=== PATIENT | male | born 1990 | race Caucasian/White ===

== ENCOUNTER 2016-11-04 20:42 | Emergency (ER) | payer BC, OTHER ==
[~2016-11-04] VITALS: Ht 175.3 cm; Wt 61.2 kg
[~2016-11-04 20:42] MED LIST: ONDA4TAB11 PO; ONDAN4ODT PO; PNT40TEC PO
[2016-11-04] MEDS ORDERED: ONDANSETRON 4 MG (ZOFRAN) ORAL DISSOLVE TAB PO ONE (21:00)
[2016-11-04] MEDS ORDERED: RX-ONDANSETRON 4 MG ODT (ZOFRAN) PPK #4 PO STA (21:49)
[2016-11-04] MEDS ORDERED: ONDA4TAB8 PO (21:52)
[2016-11-04] MEDS ORDERED: PANT40TA2 PO (21:52)
--- NOTE | 2016-11-04 21:52 | ED GI ---
General Chief Complaint: Abdominal/GI Problems Stated Complaint: VOMITING COLD SWEATS NAUSEA Nursing Triage Note: SINUS PRESSURE, NAUSEA/VOMITTING X4HRS Sepsis Screen: No Definite Risk Source of Information: Patient History of Present Illness Time Seen By Provider: 21:07 Initial Comments PT STATES HE BEGAN TO HAVE A SINUS HEADACHE AROUND 1430 TODAY, AFTER GETTING OFF WORK--FELT FINE AT WORK DID NOT TAKE ANYTHING FOR HEADACHE AND HEADACHE WENT AWAY AROUND 1600, HE BEGAN TO HAVE NAUSEA AND VOMITING--STATES HE VOMITED 6-7 TIMES NO DIARRHEA. STATES HIS LAST BM WAS 2 DAYS AGO, WHICH IS NORMAL FOR PT VOIDED AT 1700 AFTER HE THREW UP A FEW TIMES, HE BEGAN TO HAVE EPIGASTRIC BURNING--STATES "MY ESOPHAGUS MURGUIA" NO FEVER NO KNOWN SICK CONTACTS OR SUSPICIOUS FOODS HAS HAD SIMILAR ON OCCASION ATE BREAKFAST, AND FOR LUNCH HAD 2 HOT DOGS AND CHIPS, AND AT 1430, HE HAD [employer]OESE FRIES. PCP: NICO Allergies and Home Medications Allergies Coded Allergies: No Known Drug Allergies (Unverified , 07/30/12) Home Medications Ondansetron 4 Mg Tab.rapdis, 4 MG PO Q4H, #10 Prescribed by: YESSI PFEIFFER on 11/04/162151 Pantoprazole Sodium 40 Mg Tablet.dr, 40 MG PO DAILY, #15 Prescribed by: YESSI PFEIFFER on 11/04/162151 Review of Systems Constitutional: no symptoms reported Respiratory: No Symptoms Reported Cardiovascular: No Symptoms Reported Gastrointestinal: See HPI Genitourinary: No Symptoms Reported Musculoskeletal: no symptoms reported Skin: no symptoms reported Psychiatric/Neurological: No Symptoms Reported Endocrine: No Symptoms Reported Past Faxpuaa-Ilrnxi-Hqizrq Hx Patient Social History Alcohol Use: Denies Use Recreational Drug Use: No Smoking Status: Current Someday Smoker Type Used: Cigarettes 2nd Hand Smoke Exposure: Yes Recent Foreign Travel: No Contact w/Someone Who Travel: No Recent Infectious Disease Expo: No Recent Hopitalizations: No Immunizations Up To Date Date of Influenza Vaccine: Jun 22, 2013 Seasonal Allergies Seasonal Allergies: No Surgeries HX Surgeries: Yes Surgeries: Vasectomy Respiratory Hx Respiratory Disorders: No Cardiovascular Hx Cardiac Disorders: No Neurological Hx Neurological Disorders: No Reproductive System Hx Reproductive Disorders: No Genitourinary Hx Genitourinary Disorders: No Gastrointestinal Hx Gastrointestinal Disorders: No Musculoskeletal Hx Musculoskeletal Disorders: No Endocrine Hx Endocrine Disorders: No HEENT HX ENT Disorders: No Cancer Hx Cancer: No Psychosocial Hx Psychiatric Problems: No Integumentary HX Skin/Integumentary Disorder: No Blood Transfusions Hx Blood Disorders: No Physical Exam Vital Signs VS - Last 72 Hours, by Label 11/04/16 11/04/16 20:55 21:55 Temp 97.6 97.6 Pulse 64 59 Resp 18 18 B/P (MAP) 106/75 Pulse Ox 98 98 O2 Delivery Room Air Capillary Refill : Less Than 3 Seconds General Appearance: no apparent distress, other (WALKS UPRIGHT AND MOVES QUICKLY WITHOUT DIFFICULTY), thin (VERY) HEENT: PERRL/EOMI, other (ORAL MUCOSA MOIST) Neck: normal inspection Respiratory: normal breath sounds, no respiratory distress, no accessory muscle use Cardiovascular: regular rate, rhythm, no murmur Gastrointestinal: normal bowel sounds, soft, no organomegaly, no pulsatile mass , No distended, No guarding, No rebound, tenderness (MILD EPIGASTRIC TENDERNESS) , No hernia, No mass Extremities: normal inspection Back: no CVA tenderness 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, no motor/sensory deficits, alert, normal mood/affect, oriented x 3 Skin: normal color, warm/dry Progress/Results/Core Measures Results/Orders My Orders Orders - YESSI PFEIFFRE DO Ondansetron Oral Dissolve Tab (Zofran (11/04/16 21:00) Pantoprazole Tablet (Protonix Tablet) (11/04/16 22:00) Rx-Ondansetron Po (Rx-Zofran Po) (11/04/16 21:49) Medications Given in ED Current Medications Medications Dose Ordered Sig/Pito Route Start Time Stop Time Status Last Admin Dose Admin Ondansetron HCl 4 mg ONCE ONCE PO 11/04/16 21:00 11/04/16 21:01 DC 11/04/16 20:59 4 MG Pantoprazole Sodium 40 mg ONCE ONCE PO 11/04/16 22:00 11/04/16 22:00 DC 11/04/16 21:54 40 MG Vital Signs/I&O Vital Sign - Last 12Hours 11/04/16 11/04/16 20:55 21:55 Temp 97.6 97.6 Pulse 64 59 Resp 18 18 B/P (MAP) 106/75 Pulse Ox 98 98 O2 Delivery Room Air Blood Pressure Mean: 85 Progress Note : Progress Note ALL SYMPTOMS COMPLETELY RESOLVED WITH ZOFRAN AND PT WANTS TO GO HOME Departure Impression Impression: Primary Impression: Nausea and vomiting Disposition: 01 HOME, SELF-CARE Condition: Improved Departure-Patient Inst. Referrals: [facility] (PCP/Family) Primary Care Physician Patient Instructions: Viral Gastroenteritis, Adult (DC) Add. Discharge Instructions: CLEAR LIQUIDS--WATER, BROTH, JELLO,, GATORADE TOMORROW IF YOU ARE BETTER, ADD BRATS DIET TO CLEAR LIQUIDS--BANANAS, RICE, APPLESAUCE, TOAST, SALTINES FOLLOW UP WITH [facility] TOMORROW IF NO BETTER All discharge instructions reviewed with patient and/or family. Voiced understanding. Scripts Ondansetron (Zofran Odt) 4 Mg Tab.rapdis 4 MG PO Q4H for Nausea/Vomiting, #10 TAB Prov: YESSI PFEIFFER DO 11/04/16 Pantoprazole Sodium (Protonix) 40 Mg Tablet.dr 40 MG PO DAILY, #15 TAB Prov: YESSI PFEIFFER DO 11/04/16 YESSI PFEIFFER DO Nov 04, 2016 21:52
[2016-11-04 21:55] VITALS: BP 106/60
[2016-11-04] MEDS ORDERED: PANTOPRAZOLE 40 MG (PROTONIX) TAB PO ONE (22:00)
== END 2016-11-04 21:55 | disposition home or self-care (01) ==
LOC: EDUNIT# 20:42 → ER 20:47
DX: R11.2 Nausea with vomiting, unspecified (principal); R51 Headache; F17.210 Nicotine dependence, cigarettes, uncomplicated
CPT/HCPCS: 99283

== ENCOUNTER 2019-10-06 12:09 | Emergency (ER) | payer BC ==
[~2019-10-06] VITALS: Ht 175 cm; Wt 56.6 kg
[~2019-10-06 12:09] MED LIST changes: +ONDA4TAB8 PO; +PANT40TA2 PO
[2019-10-06] MEDS ORDERED: NS IV 1000 ML 1,000 ML IV SCH (14:00)
[2019-10-06] MEDS ORDERED: ONDANSETRON 4 MG/2 ML (SDV) Z0FRAN IVP ONE (14:00)
[2019-10-06] MEDS ORDERED: KETOROLAC 30 MG/ML VIAL ONE (14:04)
[2019-10-06 14:06] LABS: BASOPHILS % (AUTO) 0 % (0-10); EOSINOPHILS % (AUTO) 0 % (0-10); HEMATOCRIT 44 % (40-54); HEMOGLOBIN 15.2 G/DL (13.3-17.7); LYMPHOCYTES # (AUTO) 0.4 X 10^3 (1.0-4.0); LYMPHOCYTES % (AUTO) 2 % (12-44); MEAN CORPUSCULAR HEMOGLOBIN 31 PG (25-34); MEAN CORPUSCULAR HGB CONC 34 G/DL (32-36); MEAN CORPUSCULAR VOLUME 90 FL (80-99); MEAN PLATELET VOLUME 10.7 FL (7.4-10.4); MONOCYTES # (AUTO) 0.9 X 10^3 (0.0-1.0); MONOCYTES % (AUTO) 6 % (0-12); NEUTROPHILS # (AUTO) 14.9 X 10^3 (1.8-7.8); NEUTROPHILS % (AUTO) 92 % (42-75); PLATELET COUNT 242 10^3/uL (130-400); RED CELL DISTRIBUTION WIDTH 13.5 % (10.0-14.5); WHITE BLOOD COUNT 16.3 10^3/uL (4.3-11.0)
--- NOTE | 2019-10-06 14:11 | ED GI ---
General Chief Complaint: Abdominal/GI Problems Stated Complaint: N/V Nursing Triage Note: vomitting, diarrhea since last night Sepsis Screen: No Definite Risk Source of Information: Patient Exam Limitations: No Limitations History of Present Illness Date Seen by Provider: Oct 06, 2019 Time Seen by Provider: 14:10 Initial Comments To ER with nausea vomiting diarrhea since last night, his son has been ill with similar symptoms as has his mother. Diffuse abdominal pain. Timing/Duration: 12 Hours Severity/Quality: Moderate Location: Generalized Abdomen Radiation: No Radiation Activities at Onset: None Associated Symptoms: Nausea/Vomiting Allergies and Home Medications Allergies Coded Allergies: No Known Drug Allergies (Unverified , 07/30/12) Home Medications Ondansetron 8 Mg Tab.rapdis, 8 MG PO Q6H PRN for NAUSEA/VOMITING Prescribed by: ANTHONY DONOVAN on 10/06/19 1509 Patient Home Medication List Home Medication List Reviewed: Yes Review of Systems Review of Systems Constitutional: see HPI; No chills EENTM: No Symptoms Reported Respiratory: No Symptoms Reported; Denies Cough Cardiovascular: No Symptoms Reported Gastrointestinal: See HPI, Abdominal Pain, Diarrhea, Nausea, Vomiting Genitourinary: No Symptoms Reported Musculoskeletal: no symptoms reported Skin: no symptoms reported Psychiatric/Neurological: No Symptoms Reported Endocrine: No Symptoms Reported Past Jgkrisc-Ttmyuu-Essnip Hx Patient Social History Alcohol Use: Denies Use Recreational Drug Use: No Smoking Status: Current Everyday Smoker Type Used: Cigarettes 2nd Hand Smoke Exposure: Yes Recent Foreign Travel: No Contact w/Someone Who Travel: No Recent Infectious Disease Expo: No Recent Hopitalizations: No Immunizations Up To Date Date of Influenza Vaccine: Jun 22, 2013 Seasonal Allergies Seasonal Allergies: No Past Medical History Surgeries: Yes Vasectomy Respiratory: No Cardiac: No Neurological: No Reproductive Disorders: No Gastrointestinal: No Musculoskeletal: No Endocrine: No Cancer: No Psychosocial: No Integumentary: No Blood Disorders: No Physical Exam Vital Signs Vital Signs - First Documented 10/06/19 12:55 Temp 36.4 Pulse 71 Resp 18 B/P (MAP) 104/61 (75) Pulse Ox 100 O2 Delivery Room Air Capillary Refill : Less Than 3 Seconds Height/Weight/BMI Height: 5'9.00" Weight: 130lbs. oz. [id number]; 18.00 BMI Method:Stated General Appearance: WD/WN, no apparent distress, thin Respiratory: no respiratory distress, no accessory muscle use Cardiovascular: regular rate, rhythm, no murmur Gastrointestinal: normal bowel sounds, non tender, soft Extremities: normal range of motion, non-tender Neurologic/Psychiatric: alert, normal mood/affect, oriented x 3 Skin: normal color, warm/dry Progress/Results/Core Measures Results/Orders Lab Results Laboratory Tests Test 10/06/19 13:54 10/06/19 14:50 Range/Units White Blood Count 16.3 H 4.3-11.0 10^3/uL Red Blood Count 4.91 4.35-5.85 10^6/uL Hemoglobin 15.2 13.3-17.7 G/DL Hematocrit 44 40-54 % Mean Corpuscular Volume 90 80-99 FL Mean Corpuscular Hemoglobin 31 25-34 PG Mean Corpuscular Hemoglobin Concent 34 32-36 G/DL Red Cell Distribution Width 13.5 10.0-14.5 % Platelet Count 242 130-400 10^3/uL Mean Platelet Volume 10.7 H 7.4-10.4 FL Neutrophils (%) (Auto) 92 H 42-75 % Lymphocytes (%) (Auto) 2 L 12-44 % Monocytes (%) (Auto) 6 0-12 % Eosinophils (%) (Auto) 0 0-10 % Basophils (%) (Auto) 0 0-10 % Neutrophils # (Auto) 14.9 H 1.8-7.8 X 10^3 Lymphocytes # (Auto) 0.4 L 1.0-4.0 X 10^3 Monocytes # (Auto) 0.9 0.0-1.0 X 10^3 Eosinophils # (Auto) 0.0 0.0-0.3 10^3/uL Basophils # (Auto) 0.0 0.0-0.1 10^3/uL Neutrophils % (Manual) 88 % Lymphocytes % (Manual) 3 % Monocytes % (Manual) 2 % Eosinophils % (Manual) 0 % Basophils % (Manual) 0 % Band Neutrophils 7 % Blood Morphology Comment NORMAL Sodium Level 139 135-145 MMOL/L Potassium Level 3.6 3.6-5.0 MMOL/L Chloride Level 105 98-107 MMOL/L Carbon Dioxide Level 21 21-32 MMOL/L Anion Gap 13 5-14 MMOL/L Blood Urea Nitrogen 19 H 7-18 MG/DL Creatinine 0.97 0.60-1.30 MG/DL Estimat Glomerular Filtration Rate > 60 BUN/Creatinine Ratio 20 Glucose Level 166 H 70-105 MG/DL Calcium Level 10.0 8.5-10.1 MG/DL Corrected Calcium 8.5-10.1 MG/DL Total Bilirubin 1.1 H 0.1-1.0 MG/DL Aspartate Amino Transf (AST/SGOT) 17 5-34 U/L Alanine Aminotransferase (ALT/SGPT) 18 0-55 U/L Alkaline Phosphatase 84 40-136 U/L Total Protein 8.0 6.4-8.2 GM/DL Albumin 5.1 H 3.2-4.5 GM/DL Lipase 12 8-78 U/L My Orders Orders - ANTHONY DONOVAN APRN Cbc With Automated Diff (10/06/19 13:56) Comprehensive Metabolic Panel (10/06/19 13:56) Ua Culture If Indicated (10/06/19 13:56) Lipase (10/06/19 13:56) Ed Iv/Invasive Line Start (10/06/19 13:56) Ns Iv 1000 Ml (Sodium Chloride 0.9%) (10/06/19 14:00) Ondansetron Injection (Zofran Injectio (10/06/19 14:00) Manual Differential (10/06/19 13:54) Ketorolac Injection (Toradol Injection) (10/06/19 14:15) Ketorolac Injection (Toradol Injection) (10/06/19 14:04) Medications Given in ED Current Medications Medications Dose Ordered Sig/Pito Route Start Time Stop Time Status Last Admin Dose Admin Ketorolac Tromethamine 15 mg ONCE ONCE IVP 10/06/19 14:15 10/06/19 14:16 DC 10/06/19 14:12 15 MG Ondansetron HCl 8 mg ONCE ONCE IVP 10/06/19 14:00 10/06/19 14:01 DC 10/06/19 14:12 8 MG Vital Signs/I&O 10/06/19 12:55 Temp 36.4 Pulse 71 Resp 18 B/P (MAP) 104/61 (75) Pulse Ox 100 O2 Delivery Room Air Blood Pressure Mean: 75 Departure Communication (Admissions) 1511-feeling much better at this time. He does not have any abdominal pain. Discussed with him that I do not feel a CT scan is warranted at this point as the pain was diffuse and completely resolved with Toradol. , if the pain returns then he should come back and we will do a CT scan.He agrees with this plan. Impression Primary Impression: Nausea vomiting and diarrhea Disposition: HOME, SELF-CARE Condition: Stable Departure-Patient Inst. Decision time for Depature: 15:08 Referrals: [facility] (PCP/Family) Primary Care Physician Patient Instructions: Nausea and Vomiting, Adult Add. Discharge Instructions: 1. You can use [id number] Imodium for diarrhea control, use the nausea me dication as directed. Get some Pedialyte to sip on Scripts Ondansetron (Ondansetron Odt) 8 Mg Tab.rapdis 8 MG PO Q6H PRN for NAUSEA/VOMITING, #10 TAB Prov: ANTHONY DONOVAN APRN 10/06/19 Work/School Note: Work Release Form Date Seen in the Emergency Department: Oct 06, 2019 Return to Work: Oct 08, 2019 ANTHONY DONOVAN APRN Oct 06, 2019 14:11
[2019-10-06] MEDS ORDERED: KETOROLAC 30 MG/ML VIAL IVP ONE (14:15)
[2019-10-06 14:26] LABS: ALANINE AMINOTRANSFERASE 18 U/L (0-55); ALBUMIN 5.1 GM/DL (3.2-4.5); ALKALINE PHOSPHATASE 84 U/L (40-136); BILIRUBIN,TOTAL 1.1 MG/DL (0.1-1.0); BUN/CREATININE RATIO 20; CARBON DIOXIDE 21 MMOL/L (21-32); CHLORIDE 105 MMOL/L (98-107); CREATININE SERUM 0.97 MG/DL (0.60-1.30); GFR ESTIMATED > 60; GLUCOSE 166 MG/DL (70-105); LIPASE 12 U/L (8-78); POTASSIUM 3.6 MMOL/L (3.6-5.0); SODIUM 139 MMOL/L (135-145)
[2019-10-06 14:31] LABS: BAND NEUTROPHILS 7 %; BASOPHILS % (MANUAL) 0 %; EOSINOPHILS % (MANUAL) 0 %; LYMPHOCYTES % (MANUAL) 3 %; MONOCYTES % (MANUAL) 2 %; NEUTROPHILS % (MANUAL) 88 %; RBC MORPH NORMAL
[2019-10-06 14:56] LABS: BILIRUBIN,URINE 1+ (NEGATIVE); CLARITY,URINE CLEAR; COLOR,URINE YELLOW; GLUCOSE, URINE (UA) NEGATIVE (NEGATIVE); KETONES,URINE 3+ (NEGATIVE); LEUKOCYTE ESTERASE ,URINE NEGATIVE (NEGATIVE); NITRITE,URINE NEGATIVE (NEGATIVE); PH,URINE 5.5 (5-9); PROTEIN,URINE NEGATIVE (NEGATIVE)
[2019-10-06] MEDS ORDERED: ONDA8TAB13 PO (15:09)
[2019-10-06 15:14] LABS: BACTERIA,URINE FEW /HPF; WBC,URINE RARE /HPF
[2019-10-06 15:30] VITALS: BP 110/69
== END 2019-10-06 15:30 | disposition home or self-care (01) ==
LOC: EDUNIT# 12:09 → ER 12:10
DX: R11.2 Nausea with vomiting, unspecified (principal); R19.7 Diarrhea, unspecified; F17.210 Nicotine dependence, cigarettes, uncomplicated
CPT/HCPCS: 36415; 80053; 81000; 83690; 85007; 85027

== ENCOUNTER 2021-03-11 07:40 | Emergency (ER) | payer BC ==
[~2021-03-11] VITALS: Ht 175.3 cm; Wt 58.1 kg
[~2021-03-11 07:40] MED LIST changes: +ONDA8TAB13 PO
[2021-03-11] MEDS ORDERED: TETANUS,DIPTH,PERTUSS P/F (BOOSTRIX) 0.5 ML VIAL IM ONE (08:15)
[2021-03-11] MEDS ORDERED: ONDANSETRON 4 MG (ZOFRAN) ORAL DISSOLVE TAB PO ONE (08:15)
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
--- NOTE | 2021-03-11 09:02 | Diagnostic Imaging Report ---
Exam: Right wrist radiograph Exam date: 03/11/2001 COMPARISON: Right hand radiograph 03/11/2021 HISTORY: Right wrist pain. TECHNIQUE: 3 views the right wrist. FINDINGS: There is no acute fracture, dislocation, or destructive osseous process. Joint spaces are normal. Soft tissues are normal. IMPRESSION: No acute osseous abnormality of the right wrist. Dictated by: Dictated on workstation # [id number]
--- NOTE | 2021-03-11 09:03 | Diagnostic Imaging Report ---
Exam: Right hand radiograph Exam date: 03/11/2021 COMPARISON: Right wrist radiograph 03/11/2021 HISTORY: Right hand pain. TECHNIQUE: 3 views the right hand. FINDINGS: There is no acute fracture, dislocation, or destructive osseous process. The joint spaces are normal. The soft tissues are normal. IMPRESSION: No acute osseous abnormality of the right hand. Dictated by: Dictated on workstation # [id number]
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
[2021-03-11] MEDS ORDERED: ONDA4TAB11 PO (09:48)
[2021-03-11 09:53] VITALS: BP 119/67
== END 2021-03-11 09:53 | disposition home or self-care (01) ==
LOC: EDUNIT# 07:40 → ER 07:43
DX: S06.0X0A Concussion without loss of consciousness, initial encounter (principal); S01.01XA Laceration without foreign body of scalp, initial encounter; S40.011A Contusion of right shoulder, initial encounter; S60.021A Contusion of right index finger without damage to nail, initial encounter; S60.811A Abrasion of right wrist, initial encounter; T74.11XA Adult physical abuse, confirmed, initial encounter; R40.2410 Glasgow coma scale score 13-15, unspecified time; Z23 Encounter for immunization; Y04.2XXA Assault by strike against or bumped into by another person, initial encounter
CPT/HCPCS: 70450; 70486; 72125; 73110; 73130; 90471; 90715